=== PATIENT | male | born 1995 | race Caucasian/White ===

== ENCOUNTER 2019-09-23 11:23 | Emergency (ER) | payer SELFPAY ==
[~2019-09-23] VITALS: Ht 182.9 cm; Wt 106.8 kg
[2019-09-23 11:33] VITALS: TEMP 97.8
[2019-09-23] MEDS ORDERED: PRIL40 PO (11:59)
[2019-09-23 13:14] VITALS: BP 125/91; PULSE 99
== END 2019-09-23 13:13 | disposition home or self-care (01) ==
LOC: COL.ER 11:23
DX: S16.1XXA Strain of muscle, fascia and tendon at neck level, initial encounter (principal); V49.9XXA Car occupant (driver) (passenger) injured in unspecified traffic accident, initial encounter